=== PATIENT | male | born 1965 | race African-American/Black ===

== ENCOUNTER → 2016-06-28 | Outpatient (CLI) | payer BC ==
[~2016-06-28] MED LIST: ACET-2321 PO; ENOX150D SQ; HYDR-347 PO; IBUP200C62 PO; NAPR375T4 PO; ONDA4TAB4 PO; WARF4TAB6 PO; WARF6TAB5 PO
--- NOTE | 2016-06-28 18:38 | DI ---
EXAM: MRI ELBOW RIGHT W/O CONTRAST LOCATION OF DICTATION: [facility] [place] HISTORY: ITS.REASON: S59.797I INJURY COMPARISON: No prior studies available for comparison. Technique: Routine sequences were obtained through the right elbow. FINDINGS: There is rupture of the biceps brachii tendon from its attachment to the radial tuberosity with retraction of at least 6.2 cm. The tendon is retracted and appears wavy. Increased T2 signal changes are seen along the tract of the retraction site. Increased T2 signal changes also extend to the musculotendinous junction of the biceps brachii. The ulnar collateral ligament, radial collateral ligament, annular ligament, and lateral ulnar collateral ligament are intact. There is a trace of fluid seen within the elbow joint. The bone marrow demonstrates normal marrow signal intensity in the lower humerus and in the proximal radius and ulna. The articular surfaces are normal. The triceps tendon appears unremarkable. The cubital tunnel and ulnar nerve appear unremarkable.. IMPRESSION: 1. There is rupture of the biceps brachii tendon from its attachment to the radial tuberosity with retraction of at least 6 cm. The retracted tendon appears wavy. .
== END ==
LOC: IMA 10:47
PROVIDERS: ATTEND Orthopaedic Surgery
DX: S46.211A Strain of muscle, fascia and tendon of other parts of biceps, right arm, initial encounter (principal); X58.XXXA Exposure to other specified factors, initial encounter; Y93.H9 Activity, other involving exterior property and land maintenance, building and construction; Y92.22 Religious institution as the place of occurrence of the external cause; Y99.9 Unspecified external cause status

== ENCOUNTER 2016-07-03 09:37 | Day surgery (SDC) | payer BC ==
[2016-07-03] VITALS (17 sets, daily range): BP systolic 119–147; BP diastolic 76–88; PULSE 64–80; RESP 8–24; TEMP 97–98.2; O2SAT 89–100; Ht 180.3 cm; Wt 98.1 kg
[~2016-07-03] VITALS: Ht 180.3 cm; Wt 98.1 kg
[~2016-07-03 09:37] MED LIST changes: +CEFAZOLIN 1 GRAM INJECTION IV ONE; -ENOX150D SQ; -HYDR-347 PO; +LIDOCAINE 1% (10mg/ml) 2ml SDV INJ ONE; +LR 1,000 ML IV SCH; -ONDA4TAB4 PO; -WARF4TAB6 PO
--- OUTSIDE RECORDS SUMMARY | 2016-07-03 09:44 | XMS REPORT | Continuity of Care Document ---
Author Author [facility] Address Unknown Phone Unavailable Care Team Providers Care Medical Dermatologist Name Role Phone DOMI ALLRED MD Primary Care Physician [phone] Insurance Providers Guarantor Kaylah Posada Address [address] [place], [place] [id number] Email [facility] Policy Number [id number] Subscriber's Name Posada BalaKaylah L Relationship 18 Self Group Number [id number] Chief Complaint and Reason for Visit Chief Complaint Upper Extremity Problem Reason for Visit [id number] Problems Past Problems Medical Problem Onset Date Biceps rupture, distal Unknown Warfarin anticoagulation Unknown Medications Current Home Medications Medication Dose Units Route Directions Days Qty Instructions Start Date Ibuprofen 200 Mg Capsule 1 Cap Oral Every 4 Hours as needed for Pain 06/23/16 Naproxen 375 Mg Tablet 1 Tab Oral Twice A Day 60 Tablet 06/23/16 Warfarin Sodium 4 Mg Tablet 1 Tab Oral Daily 90 Tablet 06/23/16 Social History Social History Problem Response Recorded Date/Time Onset Date Status Hx Substance Use No 04/19/2011 2:13pm Not Applicable Not Applicable Hx Alcohol Use No 04/19/2011 2:13pm Not Applicable Not Applicable Hospital Discharge Instructions No hospital discharge instructions. Plan of Care Discharge Date 06/23/16 4:20pm Disposition 01 DISCHARGED HOME, SELF-CARE Condition at Discharge Stable Instructions/Education Provided RICE Therapy (ED) Tendon Rupture (ED) Prescriptions See Medication Section Referrals DOMI ALLRED MD Address: [address] [place], [place] [phone] Additional Instructions/Education Rest your right arm bicep for the next 48 hours. You may use leading to keep removing the right arm. Call your primary care for follow-up on Saturday particularly because of your warfarin therapy. You may be referred to the Ortho clinic for follow-up. Functional Status No functional status results. Allergies, Adverse Reactions, Alerts Allergen Type Severity Reaction Status Last Updated Iodine Allergy Mild HIVES Active 06/23/16 Immunizations Query Response on File Recorded Date/Time Hx Influenza Vaccination No 04/19/11 2:13pm Hx Pneumococcal Vaccination No 04/19/11 2:13pm Hx Influenza Vaccination No 04/19/11 2:13pm Influenza Vaccine Hx NO 06/23/16 4:03pm Vital Signs Acute Vital Signs Vital Response Date/Time Temperature (Fahrenheit) 97.7 deg F (96.8 - 99.1) 06/23/2016 3:56pm Temperature (Calculated Celsius) 36.75630 degrees C (36.0 - 37.3) 06/23/2016 3:56pm Pulse Rate (adult) 110 bpm (60 - 100) 06/23/2016 3:56pm Respiratory Rate 16 breaths/min (10 - 20) 06/23/2016 3:56pm O2 Sat by Pulse Oximetry 96 % (90 - 100) 06/23/2016 3:56pm Blood Pressure 127/73 mm Hg 06/23/2016 3:56pm Height (Inches) 70.50 inches 06/23/2016 3:56pm Weight (Kilograms) 98.400 kg 06/23/2016 3:56pm Body Mass Index (BMI) 30.0 06/23/2016 3:56pm Results No known relevant diagnostic tests, laboratory data and/or discharge summary. Procedures No known history of procedures. Encounters Encounter Location Arrival/Admit Date Discharge/Depart Date Attending Provider Departed Emergency Room [facility] 06/23/16 3:51pm 06/23/16 4: 20pm RHONDA HECK APRN Recent Diagnosis
--- OUTSIDE RECORDS SUMMARY | 2016-07-03 09:44 | XMS REPORT | Continuity of Care Document ---
Author Author [facility] Organization [facility] Address Unknown Phone Unavailable Allergies Active Description Code Type Severity Reaction Onset Reported/Identified Relationship to Patient Clinical Status Yes iodine NKMA N/A Hives 06/18/2013 Medications Problems Procedures Results Test Result Range Protime (INR) - 12/14/15 09:30 INR 1.9 NA 0.8-1.2 Prothrombin Time Venous seconds Comprehensive Metabolic Panel (CMP) - 12/14/15 09:30 Albumin 4.0 g/dL 3.5-5.0 Alkaline Phosphatase 60 U/L 40-150 ALT (SGPT) 28 U/L 0-55 Anion Gap 5 NA 3-20 AST (SGOT) 27 U/L 5-34 Bilirubin Total 0.4 mg/dL 0.2-1.2 BUN 11 mg/dL 8-26 Calcium 8.7 mg/dL 8.9-10.5 Chloride 107 mEq/L 99-111 CO2 29 mEq/L 23-31 Creatinine 1.39 mg/dL 0.72-1.25 Globulin 3.0 g/dL 1.8-4.0 Glucose 96 mg/dL 70-99 Potassium 4.3 mEq/L 3.5-5.2 Protein 7.0 g/dL 6.1-7.7 Sodium 141 mEq/L 135-144 Lipid Panel - 12/14/15 09:30 Cardiac Risk 6.9 0.0-5.7 Cholesterol 221 mg/dL 0-199 HDL Cholesterol 32 mg/dL 40-84 LDL Cholesterol 139 mg/dL 0-130 Triglycerides 249 mg/dL 0-149 VLDL Cholesterol 50 mg/dL 0-28 eGFR - 12/14/15 09:30 eGFR 54 mL/min >60 Protime (INR) - 05/02/16 15:33 INR 1.9 NA 0.8-1.2 Prothrombin Time Venous seconds CBC With Platelet and Differential - 05/02/16 15:33 Absolute Basophils 0.03 10*3/uL 0.00- 0.20 Absolute Eosinophils 0.18 10*3/uL 0.00- 0.50 Absolute Lymphocytes 0.48 10*3/uL 0.80- 3.30 Absolute Monocytes 0.79 10*3/uL 0.30- 1.00 Absolute Neutrophils 2.96 10*3/uL 1.90- 7.00 Basophils 1 % 0-2 Eosinophils 4 % 0-4 HCT 42.7 % 42.0-52.0 HGB 14.0 g/dL 14.0-18.0 Immature Granulocytes 0.0 % 0.0-1.0 Lymphocytes 11 % 20-46 MCH 26.6 pg 27.0-32.0 MCHC 32.8 g/dL 32.0-36.0 MCV 81.0 fL 82.0-99.0 Monocytes 18 % 4-11 MPV 11.3 fL 8.8-14.8 Neutrophils 67 % 51-75 Platelet Count 187 K/uL 150-400 RBC 5.27 10*6/uL 4.60-6.20 RDW 13.7 % 11.5-14.5 WBC 4.4 K/uL 4.8-10.8 Comprehensive Metabolic Panel (CMP) - 05/02/16 15:33 Albumin 4.0 g/dL 3.5-5.0 Alkaline Phosphatase 62 U/L 40-150 ALT (SGPT) 38 U/L 0-55 Anion Gap 6 NA 3-20 AST (SGOT) 33 U/L 5-34 Bilirubin Total 0.5 mg/dL 0.2-1.2 BUN 11 mg/dL 8-26 Calcium 8.9 mg/dL 8.4-10.2 Chloride 105 mEq/L 99-111 CO2 29 mEq/L 23-31 Creatinine 1.43 mg/dL 0.72-1.25 Globulin 3.2 g/dL 1.8-4.0 Glucose 83 mg/dL 70-99 Potassium 4.1 mEq/L 3.5-5.2 Protein 7.2 g/dL 6.1-7.7 Sodium 140 mEq/L 135-144 Rheumatoid Factor - 05/02/16 15:33 Rheumatoid Factor <15 IU/mL 0-29 eGFR - 05/02/16 15:33 eGFR 52 mL/min >60 Sedimentation Rate - 05/02/16 15:33 Sedimentation Rate 8 mm/h 0-15 DEBI Screen - 05/02/16 15:33 DEBI Screen Negative NA Negative Protime (INR) - 06/29/16 11:47 INR 2.9 NA 0.8-1.2 Prothrombin Time Venous seconds CBC With Platelet and Differential - 06/29/16 11:47 Absolute Basophils 0.02 10*3/uL 0.00- 0.20 Absolute Eosinophils 0.10 10*3/uL 0.00- 0.50 Absolute Lymphocytes 1.29 10*3/uL 0.80- 3.30 Absolute Monocytes 0.44 10*3/uL 0.30- 1.00 Absolute Neutrophils 2.63 10*3/uL 1.90- 7.00 Basophils 0 % 0-2 Eosinophils 2 % 0-4 HCT 44.5 % 42.0-52.0 HGB 14.6 g/dL 14.0-18.0 Immature Granulocytes 0.2 % 0.0-1.0 Lymphocytes 29 % 20-46 MCH 26.7 pg 27.0-32.0 MCHC 32.8 g/dL 32.0-36.0 MCV 81.4 fL 82.0-99.0 Monocytes 10 % 4-11 MPV 10.8 fL 8.8-14.8 Neutrophils 59 % 51-75 Platelet Count 206 K/uL 150-400 RBC 5.47 10*6/uL 4.60-6.20 RDW 14.1 % 11.5-14.5 WBC 4.5 K/uL 4.8-10.8 Basic Metabolic Panel (BMP) - 06/29/16 11:47 Anion Gap 8 mEq/L 3-20 BUN 12 mg/dL 8-26 Calcium 9.4 mg/dL 8.4-10.2 Chloride 105 mEq/L 99-111 CO2 27 mEq/L 23-31 Creatinine 1.49 mg/dL 0.72-1.25 Glucose 94 mg/dL 70-99 Potassium 4.3 mEq/L 3.5-5.2 Sodium 140 mEq/L 135-144 eGFR - 06/29/16 11:47 eGFR 50 mL/min >60 Encounters ACCT No. Visit Date/Time Discharge Status Pt. Type Provider Facility Loc./Unit Complaint [id number] 06/29/2016 11:03:00 2016 23:59:00 DIS Outpatient Nito Arroyo [facility] preop dr ayers on warfarin orders coming [id number] 06/25/2016 14:53:00 2016 23:59:00 DIS Outpatient Nito Arroyo [facility] seen in urgent care ruptured bicep rt [id number] 05/02/2016 14:55:00 2016 23:59:00 DIS Outpatient Nito Arroyo [facility] [place] achy, slight fever, chest pains on 3.14 [id number] 12/14/2015 08:12:00 2015 23:59:00 DIS Outpatient Nito Arroyo [facility] [place] TCPA physical [id number] 11/05/2014 08:42:00 2014 23:59:00 DIS Outpatient Nito Arroyo [facility] med check
[2016-07-03] MEDS ORDERED: ENOX150D SQ (10:05)
[2016-07-03 10:11] LABS: INR 1.17 (0.76-1.04); PROTHROMBIN TIME 12.8 SEC (9.31-12.49)
[2016-07-03] MEDS ORDERED: BUPIVACAINE 0.25% (2.5mg/ml) INJ 30ml SDV ONE (10:39)
--- NOTE | 2016-07-03 10:50 | ANESPREOP ---
Anesthesia Record Date and Time DATE: 07/03/16 TIME: 10:49 Pre-Op Diagnosis biceps rupture Proposed Surgical Procedure RT DISTAL BICEPS REPAIR NPO since: 2199 Allergies: Coded Allergies: iodine (Verified Allergy, Mild, HIVES, 07/02/16) Ht/Wt/BMI Height: 5 ' 11.00 " Weight: 98.100 kg BMI: 30.2 kg/m2 Vital Signs Date Time Temp Pulse Resp B/P Pulse Ox O2 Delivery O2 Flow Rate FiO2 07/03/16 10:14 98.2 77 16 132/87 95 Room Air Medications Inpatient Medications Current Medications Medications (Trade) Dose Ordered Sig/Bennie Start Time Stop Time Status Last Admin Dose Admin Lactated Ringer's (Lactated Ringers) 1,000 ml @ 50 mls/hr Q20H 07/03/16 07:00 07/03/16 10:26 50 MLS/HR Acetaminophen (Tylenol) 325 Mg Tablet, 1-2 TAB PO QID, (Reported) Last Taken: on 07/02/16 0001 Enoxaparin Sodium (Lovenox) 150 Mg/Ml Inj, 150 MG SQ DAILY, (Reported) Last Taken: on 07/02/16 Ibuprofen (Ibuprofen) 200 Mg Capsule, 1 CAP PO Q4H PRN for PAIN, (Reported) Last Taken: on 06/27/16 Naproxen (Naproxen) 375 Mg Tablet, 1 TAB PO BID, ( Reported) Last Taken: on Unknown Date & Time Warfarin Sodium (Warfarin Sodium) 6 Mg Tablet, 6 MG PO NOON, (Reported) Take 1 tablet, by mouth, 1 time a day (at NOON). Last Taken: on 06/28/16 Currently on Beta Richa: No Medical/Surgical History Anesthesia PMH: Reports: Anesthesia Reactions (NO AIRWAY, NAUSEA), Arthritis ( HANDS), Asthma ( A CHILD), Clotting Problems (DVT-TAKES WARFIN), Deep Vein Thrombosis (HX. DVT- 2YRS AGO), Headaches, Denies: *Angina, *Diabetes, *Dyspnea , *Hypertension, *ID, CHF, COPD, CVA/Stroke/TIA, Cancer, Glaucoma, Hepatitis, Hiatal Hernia, Malignant Hyperthermia, Pneumonia, Reflux, Renal Disease, Rheumatic Fever, Seizures, Sleep Apnea, Thyroid Disease, Tuberculosis Smoking Status: Never smoker Second Hand Exposure: Yes (HX) Substance Use Type: does not use Past Surgical History Orthopedic Surgeries: Yes - LEFT WRIST Abdominal Surgeries: Yes - UMBILICAL HERNIA SURGERY Genitourinary Surgeries: Yes - OPEN UP BLADDER WITH CATHETER Cardiac Surgeries: No Endocrine Surgeries: No Reproductive Surgeries: Yes - LEFT TESTICLE REMOVAL Neurological Surgeries: No Ear Surgeries: No Nose Surgeries: No Throat Surgeries: No Other Surgeries: Yes - WISDOM TEETH Anesthesia Adverse Reactions: FOUND none Pertinent Findings Test 07/03/16 10:00 Prothromb Time International Ratio 1.17 (0.76-1.04) EKG Rhythm: Sinus Rhythm Physical Exam Respiratory: Lungs clear Cardiovascular: FOUND Regular rate, rhythm, FOUND No murmur Airway Assessment Mallampati Score: I TMD: 3 Fingerbreadths Neck Extension: Good Teeth: Chipped Teeth/Crowns Overall Assessment: No Airway Concerns ASA: 2 Plan Anesthesia Plan: LMA Discussion Discussed risks/options/alternatives of anesthesia and questions answered. Patient consents. Nursing pain assessment noted. Present: Spouse Attestation Statement Prior to the delivery of any anesthetic medication, I examined the patient, developed the plan, obtained the patient's consent and discussed the risk and benefits of the procedure with the patient/guardian. TIM SMITH I PIECE PRESSER July 03, 2016 10:50
[2016-07-03] MEDS ORDERED: FENTANYL 250mcg/5ml INJECTION ONE (10:53)
[2016-07-03] MEDS ORDERED: PROPOFOL 200mg 20 ML IV ONE (10:54)
[2016-07-03] MEDS ORDERED: LIDOCAINE JELLY 2% 30ml TUBE ONE (10:58)
[2016-07-03] MEDS ORDERED: SEVOFLURANE 250 ML LIQUID IH ONE ×2 (11:01→11:05)
[2016-07-03] MEDS ORDERED: ROCURONIUM 50mg/5ml INJECTION IV ONE (11:07)
[2016-07-03] MEDS ORDERED: SUGAMMADEX 200 MG/2 ML INJECTION IV ONE (12:36)
[2016-07-03] MEDS ORDERED: HYDR-347 PO (13:12)
[2016-07-03] MEDS ORDERED: ONDA4TAB4 PO (13:12)
--- NOTE | 2016-07-03 13:14 | PDPROCED ---
Immediate Operative Note DATE: 07/03/16 TIME: 13:13 Preop Diagnosis: RIGHT DISTAL BICEPS TENDON RUPTURE Postop Diagnosis: Right distal biceps tendon rupture Surgical Procedures: Other (right distal biceps tendon repair) Surgeon: Jose Crutch Maker: ABDIAS Villareal Anesthesia: General Complications: none Estimated Blood Loss see anesthesia MATEUS LUIS July 03, 2016 13:14
[2016-07-03] MEDS ORDERED: MORPHINE 10mg/ml vl INJECTION IV PRN (13:30)
[2016-07-03] MEDS ORDERED: ONDANSETRON 4mg/2ml INJECTION IV PRN (13:30)
[2016-07-03] MEDS ORDERED: HYDROMORPHONE 2mg/ml INJECTION IV PRN (13:30)
--- NOTE | 2016-07-03 14:01 | ANESPO ---
Post-Op Note Date 07/03/16 Time: 14:01 Status Pt Participated in Evaluation: Pt participated in person Vital Signs Date Time Temp Pulse Resp B/P Pulse Ox O2 Delivery O2 Flow Rate FiO2 07/03/16 13:46 97.0 07/03/16 13:44 73 10 127/81 99 Nasal Cannula 3.00 Respiratory Function: Airway patent, Regular respirations Cardiovascular Function: Regular pulse Mental Status: Alert/oriented Pain Level Intensity: 5 Hydration: Taking po fluids Complications during Recovery None apparent Follow-Up Instructions Instructions Per Surgeon TIM MSITH CRNA July 03, 2016 14:01
--- NOTE | 2016-07-03 14:28 | DI ---
Indication: ITS.REASON: R BICEP TENDON REPAIR PROCEDURE: RF ELBOW RIGHT 2 VIEW: Encounter: Initial Comparison: Elbow MRI dated June 28, 2016 Findings: Five fluoroscopic spot images are submitted for interpretation. Images show repair of the biceps tendon with a suture anchor placed at the radial tuberosity. Impression: Fluoroscopy as above. Fluoroscopy time is 18.1 seconds. Fluoroscopy dose is 125.3 mRad. .
[2016-07-03] MEDS ORDERED: SCOPOLAMINE 1.5 MG PATCH TD SCH (14:45)
--- NOTE | 2016-07-03 15:14 | NUR ---
NAUSEA NAUSEA CONTINUES, SMALL AMOUNT VOMITED.
[2016-07-03] MEDS ORDERED: DiphenhydrAMINE 50 MG/ML INJECTION IV PRN (15:15)
--- NOTE | 2016-07-03 15:16 | NUR ---
VOMITING IV BENADRYL GIVEN FOR NAUSEA-
--- NOTE | 2016-07-03 15:21 | NUR ---
VOMITING PT VOMITED AGAIN.
--- NOTE | 2016-07-03 19:26 | OPNOTEF ---
DATE OF OPERATION 07/03/2016 PREOPERATIVE DIAGNOSIS Right distal biceps tendon rupture. POSTOPERATIVE DIAGNOSIS Right distal biceps tendon rupture. PROCEDURE Repair, right distal biceps tendon rupture. SURGEON Moustapha Garcia MD JAVA CONSULTANT John Kapadia PA-C ANESTHESIA General. FLUIDS Please refer to Anesthesia chart EBL Minimal. TOURNIQUET Please refer to Anesthesia chart. COMPLICATIONS None. CONDITION Stable in recovery room. IMPLANTS Arthrex distal biceps button and #2 FiberWire suture. DESCRIPTION OF PROCEDURE The patient was identified in the preoperative holding area. The operative extremity was identified and appropriately marked. Risks, benefits, alternatives and potential complications were discussed and informed consent was obtained. The patient was taken to the operating theatre, placed supine on the operating table. Appropriate cardiorespiratory monitors were applied. General anesthesia was induced. A tourniquet was applied high on the right arm though not yet inflated. Right upper extremity was sterilely prepped and draped in the usual fashion. Surgical time-out was performed, confirmed with myself, the wharf tender head and circulating nurse. Preoperative antibiotics were given. The arm was exsanguinated with an Esmarch. Tourniquet was inflated to 250 mmHg. Fluoroscopy was brought in and the bicipital tuberosity was identified while maintaining the arm in full supination. A 5-cm longitudinal incision was then created extending proximally from this area. The skin was incised and electrocautery was used for hemostasis in the subcutaneous tissue as necessary. The lateral antebrachial cutaneous nerve was identified lateral to the wound and protected. Care was taken to avoid vigorous retraction on the nerve. Blunt dissection deeper in the wound and through the fascia revealed the tract for the distal biceps tendon which was not visible. A finger dissection was able to identify the bicipital tuberosity and attachment of the distal biceps tendon. The biceps tendon itself was retracted proximally. The sheath was incised and blunt dissection carried proximally. A retractor was placed proximally until the tip of the tendon was milked distally by milking the distal part of the biceps muscle belly. Once visualized, the end of the tendon was grasped with an Allis clamp. In the distal 5 mm multiple throws of the #2 suture were passed to provide traction. While maintaining traction, blunt dissection with a digit was utilized to free any adhesions proximally. Following this a #2 Fiber Loop High Strength suture was passed in a whipstitch type fashion according to the technique. This was done down to approximately within 8 mm of the distal aspect of the tendon. The distal aspect of the tendon was then amputated sharply because of degenerative tissue. The ends of the tendon were then further debrided. We then sized the tendon and felt that 7 mm was just a snug tight so we elected to ream with a 7.5-mm reamer later. The tendon was irrigated and placed back underneath the subcutaneous tissue proximally. The sutures were wrapped in a saline-soaked gauze sponge. Attention was then turned towards preparation of the bicipital tuberosity. A crossing vein was limiting access distally. Therefore, suture ligature were performed of this small vein and the larger vein was retracted laterally. Continued blunt dissection distally was performed. The arm was maintained in full supination at this time. The ulnar aspect of the proximal radius was identified and a Hohmann retractor was placed. Supinator muscle belly was then encountered. This was incised longitudinally, staying centralized on bone. An elevator was utilized to elevate the muscle ulnarly and radially. The ulnar-sided Hohmann retractor was replaced. Following this, an Army-Volin retractor was placed on the radial side. At no time were any instruments placed over the radial aspect of the proximal radius to protect the posterior interosseous nerve. A second Army-Volin retractor was placed distally. Recurrent vessels were able to be pulled distally. Fluoroscopy was used to confirm position and this was deemed to be adequate in line with the radial tuberosity. Under direct visualization the Girard-tip guidewire for the Arthrex system was advanced bicortically. Following this, unicortical reaming was performed with a 7.5-mm reamer. The wound was copiously irrigated to remove any bone debris and reamings. The edges of the tunnel were visualized to assure no overhanging soft tissue. The biceps button was then brought forward from the back table. Sutures from the distal biceps tendon were woven through the tendon in a tension slide repair technique. The insertion guide for the biceps button was then applied and the biceps button inserted through the bicortical guidewire hole. The button was then flipped. The elbow was placed in approximately 30 degrees of flexion. Tension slide were then utilized to pull the distal biceps tendon distally into the unicortical tunnel. Once adequate depth was obtained, the surgical assistant maintained tension on one of the sutures while a second suture was passed through the tendon just above the aperture with a free needle. While maintaining tension and rotation the sutures were then tied. The suture tails were then cut. The patient was noted to be tight in terminal extension. It was elected to maintain him at about 25 degrees of flexion at this time. Pronation and supination were otherwise normal. The wound was then copiously irrigated and all retractors were removed. Standard layered skin closure was then performed. The tourniquet was deflated. A well-padded posterior slab splint was then applied. The patient was awakened from anesthesia and taken to the recovery room in stable and satisfactory condition. CAROL ANN
== END 2016-07-03 15:49 | disposition home or self-care (01) ==
LOC: NSC 09:37
PROVIDERS: ATTEND Orthopaedic Surgery
DX: S46.211A Strain of muscle, fascia and tendon of other parts of biceps, right arm, initial encounter (principal); Z79.01 Long term (current) use of anticoagulants; X50.9XXA Other and unspecified overexertion or strenuous movements or postures, initial encounter; Y93.89 Activity, other specified; Y92.22 Religious institution as the place of occurrence of the external cause; Y99.8 Other external cause status
CPT/HCPCS: 24342; 36415; 73070; 76001; 85610; C1713; J0690; J1200; J2405; J2704; J3010; J7120; S0020